=== PATIENT | female | born 1940 | race Caucasian/White ===

== ENCOUNTER 2016-08-24 10:26 | Outpatient (CLI) | payer MEDICARE, BC ==
[2016-08-24 13:02] LABS: #Basophils 0.1 thou/uL (0.0-0.2); #Eosinphils 0.2 thou/uL (0.0-0.7); #Lymphocytes 2.3 thou/uL (1.20-3.40); #Monocytes 0.5 thou/uL (0.11-0.59); #Neutrophils 4.9 thou/uL (1.40-6.50); %Basophils 0.9 % (0.0-1.0); %Eosinophils 1.9 % (0.0-10.0); %Lymphocytes 29.5 % (21.0-51.0); Hematocrit 41.8 % (36.0-47.0); Mean Platelet Volume 5.5 fL (7.4-10.4); Red Blood Cell (RBC) Count 4.56 mill/uL (4.20-5.40); White Blood Cell (WBC) Count 7.9 thou/uL (4.8-10.8)
[2016-08-24 13:12] LABS: ALT (SGPT) 9 U/L (0-55); AST (SGOT) 12 U/L (5-34); Alkaline Phosphatase 93 U/L (40-150); Amylase 55 U/L (20-160); Anion Gap 15 mmol/L (10-20); BUN (Urea Nitrogen) 14 mg/dL (9.8-20.1); Bilirubin, Total 0.2 mg/dL (0.2-1.2); Calc. Creatinine Clearance 0 mL/min (70-130); Calcium 9.5 mg/dL (7.8-10.44); Carbon Dioxide 28 mmol/L (23-31); Chloride 104 mmol/L (98-107); Estimated GFR-MDRD 75; Globulin 2.6 g/dL (2.4-3.5); Lipase 34 U/L (8-78); Protein, Total 6.6 g/dL (5.8-8.1)
[2016-08-24 14:14] LABS: Free T3 2.91 pg/mL (1.71-3.71)
== END 2016-08-24 10:27 | disposition home or self-care (01) ==
LOC: NAVSJIPCSP 10:26
PROVIDERS: ATTEND Internal Medicine
DX: T50.905S Adverse effect of unspecified drugs, medicaments and biological substances, sequela (principal)
CPT/HCPCS: 36415; 80053; 82150; 82175; 82306; 82607; 82728; 83655; 83690; 83735; 83825; 84439; 84443; 84481; 84630; 85025

== ENCOUNTER 2017-03-30 09:48 | Outpatient (CLI) | payer MEDICARE, BC ==
--- NOTE | 2017-03-30 16:05 | ULT ---
ABDOMINAL SONOGRAM: 03/30/17 HISTORY: Abdominal pain. FINDINGS: Gallbladder has a normal appearance without evidence of stones. Common duct is 0.3 cm in diameter. S eptated cyst within the caudate lobe of the liver is 2.5 cm greatest diameter. No free fluid is appa rent. The spleen, kidneys, and visualized portions of the abdominal aorta, IVC, and pancreas are within no rmal limits. Common duct is 0.3 cm diameter. Centered within the right lower quadrant is a heterogeneous mass containing some internal flow and c alcifications. It measures up to 12.3 cm in length x 0.7 cm in depth. IMPRESSION: Large right lower quadrant mass, favored to be gynecologic in origin. Pelvic sonogram is pending. Please consider CT of the abdomen and pelvis for better characterization of the lesion. POS: [facility]
== END 2017-03-30 09:49 | disposition home or self-care (01) ==
LOC: NAV ULT 09:48
PROVIDERS: ATTEND Internal Medicine
DX: R19.03 Right lower quadrant abdominal swelling, mass and lump (principal)
CPT/HCPCS: 76700

== ENCOUNTER 2017-04-18 10:57 | Outpatient (CLI) | payer MEDICARE, BC ==
--- NOTE | 2017-04-18 16:20 | ULT ---
PELVIC ULTRASOUND: Date: 04-18-17 History: Right lower quadrant mass seen on prior abdominal ultrasound on 03-30-17. FINDINGS: Multiple transabdominal and endovaginal sonographic images of the pelvis are obtained. The uterus is heterogeneous and lobulated in appearance. In addition, there is a large mass in the m idline and right lower quadrant of the abdomen which measures 14 cm x 12 cm x 9 cm in maximal dimens ions. The uterus and right ovary abutt this mass and the exact origin of this mass is unable to be d etermined based on this examination. Uterus is not well demarcated in relation to this mass. Though this mass does abutt the right ovary, there are peripheral follicles seen in the right ovary and a n ormal appearing portion of the right ovary measures 3.5 cm x 1.8 cm x 2.3 cm. Left ovary demonstrate s normal sonographic appearance with peripheral follicles seen that measures 2.9 cm x 1.3 cm x 1.8 c m. Doppler evaluation and spectral analysis of each ovary demonstrates arterial flow in the bilateral o varies. Endometrial stripe is thickened for post-menopausal female patient, measuring between 0.7 and 0.8 cm . No free fluid is seen in the cul-de-sac. IMPRESSION: 1. Large heterogeneous mass in the midline and in the right lower quadrant of the abdomen. The exact origin of this mass is unable to be delineated on this examination. This mass abuts both the right ovary as well as the uterus. Margins of the uterus do appear lobulated, and uterus has a heterogeneo us appearance. Further evaluation with CT scan versus MRI of the pelvis is recommended for further e valuation. 2. Thickened endometrial stripe, and abnormal in thickness for post-menopausal female patient. Altho ugh findings could be related to hormone replacement therapy, other etiologies for increased thickne ss of endometrial stripe including endometrial carcinoma are a possibility. POS: [facility]
== END 2017-04-18 10:58 | disposition home or self-care (01) ==
LOC: NAV ULT 10:57
PROVIDERS: ATTEND Internal Medicine
DX: R19.03 Right lower quadrant abdominal swelling, mass and lump (principal); Z78.0 Asymptomatic menopausal state
CPT/HCPCS: 76856

== ENCOUNTER 2017-05-18 16:02 | Inpatient (IN) | payer MEDICARE, BC ==
[2017-05-18 18:05] VITALS: BMI 16.3
[2017-05-18] MEDS: Ondansetron HCl/PF 4 MG/2 ML Vial IVP PRN (18:39)
[2017-05-18] MEDS: Famotidine 20 MG TAB PO SCH ×2 (20:19→20:21)
[2017-05-18 20:32] LABS: #Basophils 0.2 thou/uL (0.0-0.2); #Lymphocytes 1.3 thou/uL (1.20-3.40); #Monocytes 0.9 thou/uL (0.11-0.59); #Neutrophils 14.7 thou/uL (1.40-6.50); %Basophils 0.9 % (0.0-1.0); %Eosinophils 0.2 % (0.0-10.0); %Lymphocytes 7.8 % (21.0-51.0); %Monocytes 5.5 % (0.0-10.0); %Neutrophils 85.6 % (42.0-75.0); Mean Corpuscular HGB CONC 31.2 g/dL (32.0-36.0); Mean Corpuscular Hemoglobin 27.9 pg (27.0-31.0); Mean Corpuscular Volume 89.5 fl (81.0-99.0); Mean Platelet Volume 6.9 fL (7.4-10.4); Platelet Count 299 thou/uL (130-400); RBC Distribution Width 17.7 % (11.5-14.5); Red Blood Cell (RBC) Count 2.86 mill/uL (4.20-5.40); White Blood Cell (WBC) Count 17.2 thou/uL (4.8-10.8)
[2017-05-18 20:46] LABS: ALT (SGPT) 9 U/L (8-55); AST (SGOT) 21 U/L (5-34); Albumin 2.7 g/dL (3.4-4.8); Alkaline Phosphatase 364 U/L (40-150); Anion Gap 15 mmol/L (10-20); BUN (Urea Nitrogen) 21 mg/dL (9.8-20.1); Bilirubin, Total 0.8 mg/dL (0.2-1.2); Calc. Creatinine Clearance 48 mL/min (70-130); Calcium 8.9 mg/dL (7.8-10.44); Carbon Dioxide 28 mmol/L (23-31); Chloride 98 mmol/L (98-107); Estimated GFR-MDRD Greater than 90; Globulin 3.5 g/dL (2.4-3.5); Glucose 132 mg/dL (83-110); Protein, Total 6.2 g/dL (6.0-8.3); Sodium 137 mmol/L (136-145)
[2017-05-18] MEDS: SODIUM ACETATE IV SCH ×9 (21:57)
[2017-05-18] MEDS: [UNRECOGNIZED DRUG - OTHER] IV SCH ×9 (21:57)
[2017-05-18] MEDS: SODIUM CHLORIDE IV SCH ×9 (21:57)
[2017-05-18] MEDS: POTASSIUM CHLORIDE IV SCH ×9 (21:57)
[2017-05-18] MEDS ORDERED: AMINO ACIDS IV SCH (22:00)
--- NOTE | 2017-05-19 00:37 | HP ---
DATE OF ADMISSION: 05/18/2017 HISTORY OF PRESENT ILLNESS: The patient is a very pleasant 76-year-old white female with a long his tory of hypertension, hyperlipidemia, has had a history of worsening weight loss and abdominal pain over the last several months and worked up as an outpatient, which showed an abdominal mass on CT sc an was referred to Dr. Reyna as an outpatient with the pain got worse, was admitted to the [facility] and found to have a very large abdominal mass with biopsy which showed undifferentiated carcinoma. She has been started on TPN because of her anorexia and weight loss as she has pain when she eats despite having a good appetite. PAST MEDICAL HISTORY: Remarkable only for the hypertension, hyperlipidemia. PAST SURGICAL HISTORY: Positive for tubal ligation and appendectomy. SOCIAL HISTORY: She is nonsmoker, nondrinker. MEDICATIONS: Include previous history of famotidine 20 twice daily. She is on no further blood pre ssure medicines. REVIEW OF SYSTEMS: Constitutional: She has no fever or chills. No cough, sputum production. Pulm onary: Denies chest pain, shortness of breath. Cardiovascular: Denies palpitations, orthopnea, pa roxysmal nocturnal dyspnea. Gastrointestinal: Has abdominal pain, no nausea and vomiting, increase d pain with eating, has decreased bowel movement. Genitourinary: No dysuria or hematuria. Musculo skeletal: Minimal back pain and chronic neck pain from previous laminectomy from surgery. PHYSICAL EXAMINATION: GENERAL: Patient is cachectic white female, alert, oriented, lucid, in no distress at rest. VITAL SIGNS: Showed to have a blood pressure 138/76, temperature 97, pulse 70, respirations 18, O2 sats 95%. HEENT: Pupils are equal, round, and reactive to light and accommodation. Sclerae are anicteric, Co njunctivae pale. Oral mucous membranes are dehydrated. NECK: Supple. There are no nodes or masses. LUNGS: Clear. CARDIAC: Showed regular rhythm. ABDOMEN: Scaphoid but with a large abdominal tender masses. SKIN/EXTREMITIES: Display no edema, clubbing, cyanosis, or decreased skin turgor. NEUROLOGIC: Shows no focal findings. LABORATORY AND X-RAY FINDINGS: Most recent laboratory shows white count of 17,000, hematocrit 25, h emoglobin 8. Sodium 137, potassium 4.0, chloride 98, bicarbonate 28, BUN 21, creatinine 0.55. Accu -Cheks 121-129 on TPN, alkaline phosphatase 364, albumin 2.7. Urinalysis within normal limits. ASSESSMENT AND PLAN: Unfortunate 76-year-old white female with a history of undifferentiated carcin martha of the abdomen, who admitted for total parenteral nutrition and strengthening, awaiting transfer to [facility] for further treatment. She will be monitored closely and continued on pain medica tion as needed. Total parenteral nutrition as needed with routine laboratories. Prognosis is poor, but she is a FULL CODE at this time.
[2017-05-19] MEDS ORDERED: Sodium Chloride 0.9% 20 ML ONE (01:31)
[2017-05-19] MEDS: HYDROcodone/Acetaminophen 5/325 mg Tablet PO PRN ×5 (01:33→22:31)
[2017-05-19] MEDS: Ondansetron HCl/PF 4 MG/2 ML Vial IVP PRN ×3 (01:34→22:24)
[2017-05-19 05:35] LABS: PTT 35.4 SEC (22.9-36.1); Prothrombin Time 13.7 SEC (12.0-14.7)
[2017-05-19 05:46] LABS: ALT (SGPT) 8 U/L (8-55); AST (SGOT) 22 U/L (5-34); Albumin 2.6 g/dL (3.4-4.8); Alkaline Phosphatase 325 U/L (40-150); Anion Gap 11 mmol/L (10-20); BUN (Urea Nitrogen) 19 mg/dL (9.8-20.1); Bilirubin, Total 0.7 mg/dL (0.2-1.2); Calc. Creatinine Clearance 55 mL/min (70-130); Calcium 8.6 mg/dL (7.8-10.44); Carbon Dioxide 28 mmol/L (23-31); Cardiac Risk 4.1 (Less than 4.5); Chloride 100 mmol/L (98-107); Cholesterol 111 mg/dl (< 200 Desired); Estimated GFR-MDRD Greater than 90; Globulin 3.3 g/dL (2.4-3.5); Glucose 113 mg/dL (83-110); HDL Cholesterol 27 mg/dL (>60 Neg Risk); LDL Cholesterol, Calculated 75 mg/dL; Phosphorus 3.7 mg/dL (2.3-4.7); Potassium 4.2 mmol/L (3.5-5.1); Protein, Total 5.9 g/dL (6.0-8.3); Sodium 135 mmol/L (136-145); Triglycerides 44 mg/dL (Less than 150)
[2017-05-19] MEDS: Ondansetron ODT 4 MG TAB PO PRN (08:20)
[2017-05-19] MEDS: Ferrous Sulfate 325 MG TAB PO SCH (08:22)
[2017-05-19] MEDS: Famotidine 20 MG TAB PO SCH ×3 (08:22→22:18)
[2017-05-19] MEDS: Enoxaparin Sodium 40 MG/0.4 ML SYRINGE SC SCH (08:27)
[2017-05-19] MEDS: Sodium Chloride 0.9% 20 ML ONE ×2 (13:37→22:25)
[2017-05-19] MEDS: POTASSIUM CHLORIDE IV SCH ×9 (21:57)
[2017-05-19] MEDS: [UNRECOGNIZED DRUG - OTHER] IV SCH ×9 (21:57)
[2017-05-19] MEDS: SODIUM CHLORIDE IV SCH ×9 (21:57)
[2017-05-19] MEDS: SODIUM ACETATE IV SCH ×9 (21:57)
[2017-05-19] MEDS ORDERED: Sodium Chloride 0.9% 10 ML ONE (22:23)
[2017-05-20] MEDS ORDERED: Sodium Chloride 0.9% 10 ML ONE ×3 (06:58→14:04)
[2017-05-20] MEDS: Ferrous Sulfate 325 MG TAB PO SCH (08:16)
[2017-05-20] MEDS: Enoxaparin Sodium 40 MG/0.4 ML SYRINGE SC SCH (08:16)
[2017-05-20] MEDS: Famotidine 20 MG TAB PO SCH ×2 (08:16→20:20)
[2017-05-20] MEDS: Ondansetron HCl/PF 4 MG/2 ML Vial IVP PRN ×2 (08:17→14:07)
--- NOTE | 2017-05-20 17:59 | PRG ---
DATE OF SERVICE: 05/20/2017 HISTORY OF PRESENT ILLNESS: Ms. Casas is a very pleasant 76-year-old white female, who was found to have an abdominal mass on CT scan. She was seen by Dr. Osorio, who did a biopsy and found to have un differentiated adenocarcinoma in a very large abdominal mass. She had significant pain on eating an d was started on TPN by Dr. Osorio and Dr. Reyna. She is transferred down here for continued TPN a nd PT and OT. She has comorbidities of hypertension, hyperlipidemia, weight loss, and abdominal pain. PHYSICAL EXAMINATION: VITAL SIGNS: Reveal blood pressure is this morning 143/77, pulse 107-119, respirations 16-20, O2 sa t 94%-97%, t-max 98.9. GENERAL: This is a very pleasant, thin white female, in no apparent distress at this time. HEENT: Reveals normocephalic, nontraumatic cranium. Pupils are equally round and reactive. Sclera e are anicteric. Nose and throat are somewhat dry. NECK: Supple, without masses, nodes, or bruits. LUNGS: Chest is clear to auscultation. No rales, rhonchi, wheezes. Cough is heard. CARDIOVASCULAR: Reveals a regular rate and rhythm without murmurs, gallops, or rubs. ABDOMEN: Somewhat distended with tender abdominal masses. She does have bowel sounds in all 4 quad rants. : Deferred. EXTREMITIES: Reveal no clubbing, cyanosis, or edema. IMPRESSION: 1. Undifferentiated adenocarcinoma of the abdomen. 2. Cachexia. 3. Hypertension. 4. Hyperlipidemia. PLAN: 1. Continue TPN. 2. Pain management. 3. Continue supportive care.
[2017-05-20] MEDS ORDERED: Sodium Chloride 0.9% 20 ML ONE (20:01)
[2017-05-20] MEDS: POTASSIUM CHLORIDE IV SCH ×9 (21:13)
[2017-05-20] MEDS: [UNRECOGNIZED DRUG - OTHER] IV SCH ×9 (21:13)
[2017-05-20] MEDS: SODIUM CHLORIDE IV SCH ×9 (21:13)
[2017-05-20] MEDS: SODIUM ACETATE IV SCH ×9 (21:13)
[2017-05-21] MEDS ORDERED: Sodium Chloride 0.9% 20 ML ONE (03:46)
[2017-05-21 05:39] LABS: ALT (SGPT) 7 U/L (8-55); AST (SGOT) 20 U/L (5-34); Albumin 2.5 g/dL (3.4-4.8); Alkaline Phosphatase 251 U/L (40-150); Anion Gap 12 mmol/L (10-20); BUN (Urea Nitrogen) 24 mg/dL (9.8-20.1); Bilirubin, Total 0.4 mg/dL (0.2-1.2); Calc. Creatinine Clearance 60 mL/min (70-130); Calcium 8.4 mg/dL (7.8-10.44); Carbon Dioxide 25 mmol/L (23-31); Chloride 103 mmol/L (98-107); Estimated GFR-MDRD Greater than 90; Globulin 3.2 g/dL (2.4-3.5); Glucose 123 mg/dL (83-110); Magnesium 1.7 mg/dL (1.6-2.6); Phosphorus 3.3 mg/dL (2.3-4.7); Potassium 4.2 mmol/L (3.5-5.1); Protein, Total 5.7 g/dL (6.0-8.3); Sodium 136 mmol/L (136-145)
[2017-05-21] MEDS: Ferrous Sulfate 325 MG TAB PO SCH (08:46)
[2017-05-21] MEDS: Enoxaparin Sodium 40 MG/0.4 ML SYRINGE SC SCH (08:47)
[2017-05-21] MEDS: Famotidine/PF 20 mg/2ml Vial SLOW IVP SCH ×2 (08:54→20:21)
--- NOTE | 2017-05-21 12:17 | PRG ---
DATE OF SERVICE: 05/21/2017 DATE OF ADMISSION: 05/18/2017 HISTORY OF PRESENT ILLNESS: Ms. Casas is a very pleasant 76-year-old white female found to have an u ndifferentiated adenocarcinoma of the abdomen. She was started on TPN and transferred here until Hailey Nieto can see the patient. She continues to have comorbidities of hypertension, hyperlipidemia, abdominal pain and weight loss. OBJECTIVE: VITAL SIGNS: Today reveal blood pressure 148/74, pulse 112-119, respirations 20-22, O2 sat 96%, tem perature max 99.1. Weight is 78 pounds 4 ounces. GENERAL: Reveals a well-developed, well-nourished, cachectic-looking white female in no apparent di stress at this time. HEENT: Reveals normocephalic, nontraumatic cranium. Pupils are equally round and reactive. Extrao cular movements intact. Nose and throat are still clear but dry. NECK: Supple without masses, nodes or bruits. CHEST: Clear to auscultation. No rales, rhonchi, wheezes or cough is heard. CARDIOVASCULAR: Reveals a regular rate and rhythm, slightly tachy on my account of 104. ABDOMEN: Distended and tender with abdominal masses. Normal bowel sounds are noted. GENITOURINARY: Deferred. EXTREMITIES: Reveal no clubbing, cyanosis or edema. IMPRESSION: 1. Undifferentiated adenocarcinoma of the abdomen. 2. Cachexia. 3. Hypertension. 4. Hyperlipidemia. 5. Pain management. 6. Generalized weakness. PLAN: 1. Continue TPN. 2. Continue pain management. 3. Continue supportive care. 4. Awaiting discharge [facility].
[2017-05-21] MEDS: [UNRECOGNIZED DRUG - OTHER] IV SCH ×9 (21:02)
[2017-05-21] MEDS: POTASSIUM CHLORIDE IV SCH ×9 (21:02)
[2017-05-21] MEDS: SODIUM ACETATE IV SCH ×9 (21:02)
[2017-05-21] MEDS: SODIUM CHLORIDE IV SCH ×9 (21:02)
[2017-05-22 05:37] LABS: ALT (SGPT) 8 U/L (8-55); AST (SGOT) 24 U/L (5-34); Albumin 2.6 g/dL (3.4-4.8); Alkaline Phosphatase 276 U/L (40-150); Anion Gap 13 mmol/L (10-20); BUN (Urea Nitrogen) 19 mg/dL (9.8-20.1); Bilirubin, Total 0.4 mg/dL (0.2-1.2); Calc. Creatinine Clearance 60 mL/min (70-130); Calcium 8.4 mg/dL (7.8-10.44); Carbon Dioxide 26 mmol/L (23-31); Chloride 100 mmol/L (98-107); Estimated GFR-MDRD Greater than 90; Globulin 3.3 g/dL (2.4-3.5); Glucose 93 mg/dL (83-110); Magnesium 1.6 mg/dL (1.6-2.6); Phosphorus 3.2 mg/dL (2.3-4.7); Potassium 3.9 mmol/L (3.5-5.1); Protein, Total 5.9 g/dL (6.0-8.3); Sodium 135 mmol/L (136-145)
--- NOTE | 2017-05-22 08:00 | PRG ---
DATE OF SERVICE: 05/22/2017 DATE OF ADMISSION: 05/18/2017 HISTORY OF PRESENT ILLNESS: Ms. Casas is a very pleasant 76-year-old white female found to have sign ificant weight loss and abdominal pain. Biopsy revealed undifferentiated adenocarcinoma of the abdo men. She was started on TPN by Dr. Reyna and Dr. Osorio transferred to [facility] [place] for continued nutritional support. She is followed by Dr. Givens mainly for her comorbidities of hypertension, hyperlipidemia, abdominal pain, weight loss, and nutritional supplementation. OBJECTIVE: VITAL SIGNS: Today reveal blood pressure this morning 141/77, pulse 100-114 which is improving, res pirations 20, O2 sat 94%-96% on room air, T-max 99.4. GENERAL: This is a well-developed, very pleasant, very thin, cachectic-looking white female in no a pparent distress at this time. HEENT: Reveals normocephalic, nontraumatic cranium. Pupils are equally round and reactive. Extrao cular movements intact. Nose and throat are still looking very dry. NECK: Supple, without masses, nodes or bruits. LUNGS: Chest is clear to auscultation. No rales, rhonchi or wheezes are heard. No cough is noted. HEART: Reveals a regular rate and rhythm, tachy at exactly 100 today. ABDOMEN: engine lathe tender with abdominal masses. Still slightly distended, but soft. Normal bowel jorden nds noted in all 4 quadrants. : Exam is deferred. EXTREMITIES: Reveal no clubbing, cyanosis or edema. LABORATORY DATA: This morning reveal sodium 135, potassium 3.9, chloride 100, carbon dioxide 26 wit h BUN of 19, creatinine 0.44 and GFR greater than 90. The patient's sugar this morning was 93. Her point of care sugar reveals fasting this morning 116, before bedtime last night 123, before supper 115, before lunch 117, fasting yesterday morning 123. Patient's serum alkaline phosphatase is 276 w ith serum protein slightly up at 5.9, albumin slightly up at 2.6. IMPRESSION: 1. Differentiated adenocarcinoma of the abdomen, unknown staging. 2. Cachexia. 3. Hypertension. 4. Hyperlipidemia. 5. Nutritional malnutrition. 6. Pain management. 7. Generalized weakness. PLAN: 1. Continue TPN. 2. Continue pain management. 3. Continue supportive care. 4. Followup appointment with Dr. Abernathy on .
[2017-05-22] MEDS: Ferrous Sulfate 325 MG TAB PO SCH (08:56)
[2017-05-22] MEDS: Famotidine/PF 20 mg/2ml Vial SLOW IVP SCH ×2 (08:56→20:46)
[2017-05-22] MEDS: Enoxaparin Sodium 40 MG/0.4 ML SYRINGE SC SCH (08:57)
[2017-05-22] MEDS: Morphine 2 MG/ML SYRINGE SLOW IVP PRN (19:01)
[2017-05-22] MEDS: SODIUM ACETATE IV SCH ×9 (21:05)
[2017-05-22] MEDS: SODIUM CHLORIDE IV SCH ×9 (21:05)
[2017-05-22] MEDS: POTASSIUM CHLORIDE IV SCH ×9 (21:05)
[2017-05-22] MEDS: [UNRECOGNIZED DRUG - OTHER] IV SCH ×9 (21:05)
[2017-05-23] MEDS: Morphine 2 MG/ML SYRINGE SLOW IVP PRN ×4 (01:14→20:08)
[2017-05-23 05:37] LABS: ALT (SGPT) 7 U/L (8-55); AST (SGOT) 24 U/L (5-34); Albumin 2.5 g/dL (3.4-4.8); Alkaline Phosphatase 318 U/L (40-150); Anion Gap 14 mmol/L (10-20); BUN (Urea Nitrogen) 17 mg/dL (9.8-20.1); Bilirubin, Total 0.4 mg/dL (0.2-1.2); Calc. Creatinine Clearance 61 mL/min (70-130); Calcium 8.3 mg/dL (7.8-10.44); Carbon Dioxide 26 mmol/L (23-31); Chloride 98 mmol/L (98-107); Estimated GFR-MDRD Greater than 90; Globulin 3.3 g/dL (2.4-3.5); Glucose 85 mg/dL (83-110); Magnesium 1.6 mg/dL (1.6-2.6); Phosphorus 3.1 mg/dL (2.3-4.7); Potassium 3.7 mmol/L (3.5-5.1); Protein, Total 5.8 g/dL (6.0-8.3); Sodium 134 mmol/L (136-145)
[2017-05-23] MEDS: Ondansetron ODT 4 MG TAB PO PRN (08:03)
[2017-05-23] MEDS: Ferrous Sulfate 325 MG TAB PO SCH ×2 (08:07→08:17)
[2017-05-23] MEDS: Enoxaparin Sodium 40 MG/0.4 ML SYRINGE SC SCH ×2 (08:08→08:16)
[2017-05-23] MEDS: Famotidine/PF 20 mg/2ml Vial SLOW IVP SCH ×2 (08:08→20:07)
[2017-05-23 10:51] LABS: #Basophils 0.1 thou/uL (0.0-0.2); #Lymphocytes 1.5 thou/uL (1.20-3.40); #Monocytes 1.3 thou/uL (0.11-0.59); #Neutrophils 12.4 thou/uL (1.40-6.50); %Basophils 0.8 % (0.0-1.0); %Eosinophils 0.3 % (0.0-10.0); %Lymphocytes 9.7 % (21.0-51.0); %Monocytes 8.2 % (0.0-10.0); %Neutrophils 81.1 % (42.0-75.0); Hemoglobin 7.5 g/dL (12.0-16.0); Mean Corpuscular HGB CONC 30.8 g/dL (32.0-36.0); Mean Corpuscular Hemoglobin 27.5 pg (27.0-31.0); Mean Corpuscular Volume 89.2 fl (81.0-99.0); Mean Platelet Volume 6.6 fL (7.4-10.4); Platelet Count 316 thou/uL (130-400); RBC Distribution Width 17.9 % (11.5-14.5); Red Blood Cell (RBC) Count 2.72 mill/uL (4.20-5.40); White Blood Cell (WBC) Count 15.3 thou/uL (4.8-10.8)
--- NOTE | 2017-05-23 20:58 | PRG ---
DATE OF SERVICE: 05/23/2017 SUBJECTIVE: The patient feels well, lying in bed, but still having pain with any movement, require morphine for pain control at times. OBJECTIVE: VITAL SIGNS: Shows her blood pressure is stable at 160/81, temperature 98, pulse 99, respirations 2 0, O2 sats 96%. ABDOMEN: Distended with a large periumbilical tumor which is tender to palpation. LUNGS: Shows good breath sounds. CARDIAC: Shows regular rhythm. LABORATORY DATA: Show white count did improve somewhat 15,300, hemoglobin down to 7.5; however, hematocrit 24. Sodiu m 134, potassium 3.6, chloride 98, bicarbonate 26, BUN 17, creatinine 0.43. Liver function cells, a lkaline phosphatase 318, albumin is stable at 2.5. ASSESSMENT: 1. Abdominal tumor of unknown etiology, awaiting pathology results from [facility]. 2. Severe cachexia, malnutrition on TPN, tolerating well. PLAN: Continue PPN, follow up with Dr. Abernathy this week for definitive plan on therapy. Surgical and/or chemotherapy possibly at the [facility].
[2017-05-23] MEDS: POTASSIUM CHLORIDE IV SCH ×9 (20:59)
[2017-05-23] MEDS: [UNRECOGNIZED DRUG - OTHER] IV SCH ×9 (20:59)
[2017-05-23] MEDS: SODIUM CHLORIDE IV SCH ×9 (20:59)
[2017-05-23] MEDS: SODIUM ACETATE IV SCH ×9 (20:59)
[2017-05-24] MEDS: Morphine 2 MG/ML SYRINGE SLOW IVP PRN ×3 (05:10→19:58)
[2017-05-24 05:36] LABS: ALT (SGPT) 8 U/L (8-55); AST (SGOT) 29 U/L (5-34); Albumin 2.7 g/dL (3.4-4.8); Alkaline Phosphatase 339 U/L (40-150); Anion Gap 15 mmol/L (10-20); BUN (Urea Nitrogen) 17 mg/dL (9.8-20.1); Bilirubin, Total 0.5 mg/dL (0.2-1.2); Calc. Creatinine Clearance 57 mL/min (70-130); Calcium 8.6 mg/dL (7.8-10.44); Carbon Dioxide 25 mmol/L (23-31); Chloride 97 mmol/L (98-107); Estimated GFR-MDRD Greater than 90; Globulin 3.6 g/dL (2.4-3.5); Glucose 87 mg/dL (83-110); Magnesium 1.7 mg/dL (1.6-2.6); Phosphorus 3.1 mg/dL (2.3-4.7); Potassium 3.5 mmol/L (3.5-5.1); Protein, Total 6.3 g/dL (6.0-8.3); Sodium 133 mmol/L (136-145)
--- NOTE | 2017-05-24 07:37 | PRG ---
DATE OF SERVICE: 05/24/2017 SUBJECTIVE: The patient is an unfortunate 76-year-old white female with a history of a large undiff erentiated carcinoma in her abdomen causing partial obstruction, inability to eat, cachexia and wast ing. She is awaiting evaluation of slides by Dion Nieto and possible transfer for surgical and c hemotherapy. She is here on TPN and is tolerating TPN fairly well, but is still very weak, having r ecurrent nausea and abdominal pain. OBJECTIVE: VITAL SIGNS: Shows her blood pressure is 147/61, temperature 99.9, pulse 106, respirations 20, O2 s ats 96%. LUNGS: Clear. CARDIAC: Regular rhythm. ABDOMEN: Shows a large abdominal mass with tenderness to palpation. LABORATORY: Most recent laboratory show white count down to 15,300, but hemoglobin down also the 7. 5, hematocrit 24.3. Sodium 133, potassium 3.5, chloride 97, bicarbonate 25, BUN 17, creatinine 0.46 , albumin up slightly to 2.7, globulin 3.6. ASSESSMENT: Undifferentiated carcinoma of the abdomen with partial obstruction and cachexia and wor sening anemia. Awaiting results of pathology to determine course and will discuss with Dr. Devon vogel apparently has contacted Dion Nieto personally. We will also give 1 unit of packed cells and m onitor her response to see if it increases her strength.
[2017-05-24] MEDS: Enoxaparin Sodium 40 MG/0.4 ML SYRINGE SC SCH (08:50)
[2017-05-24] MEDS: Ferrous Sulfate 325 MG TAB PO SCH (08:50)
[2017-05-24] MEDS: Famotidine/PF 20 mg/2ml Vial SLOW IVP SCH ×2 (13:17→21:03)
[2017-05-24] MEDS: SODIUM CHLORIDE IV SCH ×9 (21:03)
[2017-05-24] MEDS: POTASSIUM CHLORIDE IV SCH ×9 (21:03)
[2017-05-24] MEDS: [UNRECOGNIZED DRUG - OTHER] IV SCH ×9 (21:03)
[2017-05-24] MEDS: SODIUM ACETATE IV SCH ×9 (21:03)
[2017-05-25] MEDS: Morphine 2 MG/ML SYRINGE SLOW IVP PRN ×4 (02:33→21:09)
[2017-05-25] MEDS: Ondansetron HCl/PF 4 MG/2 ML Vial IVP PRN ×3 (02:34→21:08)
[2017-05-25 05:54] LABS: ALT (SGPT) 8 U/L (8-55); AST (SGOT) 28 U/L (5-34); Albumin 2.7 g/dL (3.4-4.8); Alkaline Phosphatase 319 U/L (40-150); Anion Gap 13 mmol/L (10-20); BUN (Urea Nitrogen) 21 mg/dL (9.8-20.1); Bilirubin, Total 0.5 mg/dL (0.2-1.2); Calc. Creatinine Clearance 57 mL/min (70-130); Calcium 8.8 mg/dL (7.8-10.44); Carbon Dioxide 26 mmol/L (23-31); Chloride 100 mmol/L (98-107); Estimated GFR-MDRD Greater than 90; Globulin 3.5 g/dL (2.4-3.5); Glucose 84 mg/dL (83-110); Magnesium 1.9 mg/dL (1.6-2.6); Phosphorus 3.3 mg/dL (2.3-4.7); Protein, Total 6.2 g/dL (6.0-8.3); Sodium 135 mmol/L (136-145)
[2017-05-25] MEDS: Ferrous Sulfate 325 MG TAB PO SCH (08:23)
[2017-05-25] MEDS: Enoxaparin Sodium 40 MG/0.4 ML SYRINGE SC SCH (08:23)
[2017-05-25] MEDS: Famotidine/PF 20 mg/2ml Vial SLOW IVP SCH ×2 (08:24→21:08)
[2017-05-25] MEDS: [UNRECOGNIZED DRUG - OTHER] IV SCH ×9 (21:01)
[2017-05-25] MEDS: SODIUM CHLORIDE IV SCH ×9 (21:01)
[2017-05-25] MEDS: SODIUM ACETATE IV SCH ×9 (21:01)
[2017-05-25] MEDS: POTASSIUM CHLORIDE IV SCH ×9 (21:01)
[2017-05-26] MEDS: Ondansetron HCl/PF 4 MG/2 ML Vial IVP PRN ×3 (02:56→22:15)
[2017-05-26] MEDS: Morphine 2 MG/ML SYRINGE SLOW IVP PRN ×3 (02:57→15:04)
[2017-05-26 05:55] LABS: ALT (SGPT) 9 U/L (8-55); AST (SGOT) 29 U/L (5-34); Albumin 2.7 g/dL (3.4-4.8); Alkaline Phosphatase 366 U/L (40-150); Anion Gap 14 mmol/L (10-20); BUN (Urea Nitrogen) 22 mg/dL (9.8-20.1); Bilirubin, Total 0.5 mg/dL (0.2-1.2); Calc. Creatinine Clearance 57 mL/min (70-130); Calcium 8.8 mg/dL (7.8-10.44); Carbon Dioxide 25 mmol/L (23-31); Chloride 101 mmol/L (98-107); Estimated GFR-MDRD Greater than 90; Globulin 3.7 g/dL (2.4-3.5); Glucose 125 mg/dL (83-110); Magnesium 1.8 mg/dL (1.6-2.6); Phosphorus 3.3 mg/dL (2.3-4.7); Potassium 4.2 mmol/L (3.5-5.1); Protein, Total 6.4 g/dL (6.0-8.3); Sodium 136 mmol/L (136-145)
[2017-05-26 07:18] LABS: #Basophils 0.2 thou/uL (0.0-0.2); #Lymphocytes 1.4 thou/uL (1.20-3.40); #Monocytes 1.1 thou/uL (0.11-0.59); %Basophils 1.1 % (0.0-1.0); %Eosinophils 0.1 % (0.0-10.0); %Monocytes 6.9 % (0.0-10.0); %Neutrophils 82.9 % (42.0-75.0); Hemoglobin 7.5 g/dL (12.0-16.0); Mean Corpuscular HGB CONC 31.2 g/dL (32.0-36.0); Mean Corpuscular Hemoglobin 27.7 pg (27.0-31.0); Mean Corpuscular Volume 88.9 fl (81.0-99.0); Mean Platelet Volume 6.7 fL (7.4-10.4); Platelet Count 363 thou/uL (130-400); RBC Distribution Width 17.6 % (11.5-14.5); Red Blood Cell (RBC) Count 2.71 mill/uL (4.20-5.40); White Blood Cell (WBC) Count 15.7 thou/uL (4.8-10.8)
--- NOTE | 2017-05-26 08:21 | PRG ---
DATE OF SERVICE: 05/26/2017 SUBJECTIVE: The patient is having persistent intermittent abdominal pain from her abdominal mass. The patient has history of large undifferentiated carcinoma and is awaiting results of pathology rep ort from MD Nieto to determine therapy. She is on TPN at this time and appears to be slightly im proving, but is unable to tolerate any oral intake other than minimal amounts of liquids because of abdominal pain and partial obstruction. OBJECTIVE: VITAL SIGNS: Shows her blood pressure still good at 174/83, temperature is 98, pulse is 109, respir ations 20, O2 saturation is 95%. LUNGS: Clear. CARDIAC: Examination shows regular rhythm. ABDOMEN: Shows large abdominal mass within the scaphoid. Abdomen is nontender to palpation. Activ e bowel sounds. SKIN AND EXTREMITIES: Showed no edema or clubbing. LABORATORY DATA: Shows white count of 15,700, hematocrit 24, and hemoglobin 7.5. Sodium 136, potas sium 4.2, chloride 101, bicarbonate 25, BUN 24, creatinine 0.46, albumin up to 2.77. ASSESSMENT: 1. Undifferentiated carcinoma of the abdomen. Awaiting results of pathology slides from MD Nancy Thornton have confirmed that MD Nieto has slides and we will have results hopefully in the next 1-2 days to determine therapy. 2. Severe malnutrition, cachexia secondary to poor oral intake, abdominal mass and continuing on to titus parenteral nutrition with some slight improvement. 3. Recurrent anemia secondary to the mass with the patient refusing a transfusion at this time.
[2017-05-26] MEDS: Ferrous Sulfate 325 MG TAB PO SCH (08:35)
[2017-05-26] MEDS: Enoxaparin Sodium 40 MG/0.4 ML SYRINGE SC SCH (08:36)
[2017-05-26] MEDS: Famotidine/PF 20 mg/2ml Vial SLOW IVP SCH ×2 (09:00→20:59)
[2017-05-26] MEDS: SODIUM ACETATE IV SCH ×9 (20:59)
[2017-05-26] MEDS: [UNRECOGNIZED DRUG - OTHER] IV SCH ×9 (20:59)
[2017-05-26] MEDS: POTASSIUM CHLORIDE IV SCH ×9 (20:59)
[2017-05-26] MEDS: SODIUM CHLORIDE IV SCH ×9 (20:59)
[2017-05-27] MEDS: Ondansetron HCl/PF 4 MG/2 ML Vial IVP PRN ×4 (06:49→23:36)
[2017-05-27] MEDS: Enoxaparin Sodium 40 MG/0.4 ML SYRINGE SC SCH (08:15)
[2017-05-27] MEDS: Ferrous Sulfate 325 MG TAB PO SCH (08:15)
[2017-05-27] MEDS: Famotidine/PF 20 mg/2ml Vial SLOW IVP SCH ×2 (08:17→21:09)
--- NOTE | 2017-05-27 09:06 | PRG ---
DATE OF SERVICE: 05/27/2017 SUBJECTIVE: The patient feels same and is becoming somewhat agitated and frustrated about the lack of information and then wishes to make a decision today about possible hospice that she feel that sh live is not getting any better with TPN. OBJECTIVE: VITAL SIGNS: Shows her temperature is 96, pulse 106, respirations 18, O2 sats 96%, and blood pressu re 143/73. GENERAL APPEARANCE: She has been unable to eat and sip more than a few drops without having abdomin al pain. ABDOMEN: Shows a large tender abdominal mass with increased bowel sounds. LUNGS: Clear. LABORATORY DATA: Her most recent laboratory showed her white count was 15,000 yesterday with hemogl obin 7.5. Accu-Cheks 113-133, BUN is 22, creatinine 0.46, albumin 2.7, which is stable. ASSESSMENT: Large undifferentiated carcinoma of the abdomen. Awaiting results of biopsy from MD Desire peoples for the last week. The patient is wishing to make a decision about hospice for definitive ca re today and we will attempt to obtain results from MD Nieto.
[2017-05-27] MEDS ORDERED: MORPHINE 10 MG/ML SYRINGE IV PRN (10:28)
[2017-05-27] MEDS ORDERED: Ondansetron ODT 4 MG TAB PO PRN (17:19)
[2017-05-27] MEDS: MORPHINE 10 MG/ML SYRINGE IV PRN ×2 (17:47→23:35)
[2017-05-27] MEDS ORDERED: Sodium Chloride 0.9% 10 ML ONE (17:48)
[2017-05-27] MEDS: SODIUM ACETATE IV SCH ×9 (21:08)
[2017-05-27] MEDS: SODIUM CHLORIDE IV SCH ×9 (21:08)
[2017-05-27] MEDS: POTASSIUM CHLORIDE IV SCH ×9 (21:08)
[2017-05-27] MEDS: [UNRECOGNIZED DRUG - OTHER] IV SCH ×9 (21:08)
[2017-05-28] MEDS: MORPHINE 10 MG/ML SYRINGE IV PRN ×5 (03:41→22:07)
[2017-05-28] MEDS: Ondansetron HCl/PF 4 MG/2 ML Vial IVP PRN ×4 (09:04→22:07)
[2017-05-28] MEDS: Enoxaparin Sodium 40 MG/0.4 ML SYRINGE SC SCH (09:05)
[2017-05-28] MEDS: Famotidine/PF 20 mg/2ml Vial SLOW IVP SCH ×2 (09:05→21:16)
[2017-05-28] MEDS: Ferrous Sulfate 325 MG TAB PO SCH (09:06)
[2017-05-28] MEDS ORDERED: Calcium Carbonate 500 MG ChewTAB PO PRN ×2 (12:59→13:00)
[2017-05-28] MEDS: [UNRECOGNIZED DRUG - OTHER] IV SCH ×9 (21:15)
[2017-05-28] MEDS: SODIUM CHLORIDE IV SCH ×9 (21:15)
[2017-05-28] MEDS: SODIUM ACETATE IV SCH ×9 (21:15)
[2017-05-28] MEDS: POTASSIUM CHLORIDE IV SCH ×9 (21:15)
[2017-05-29] MEDS: Ondansetron HCl/PF 4 MG/2 ML Vial IVP PRN ×5 (02:08→18:04)
[2017-05-29] MEDS: MORPHINE 10 MG/ML SYRINGE IV PRN ×5 (02:08→18:04)
[2017-05-29] MEDS: Ferrous Sulfate 325 MG TAB PO SCH (08:40)
[2017-05-29] MEDS: Enoxaparin Sodium 40 MG/0.4 ML SYRINGE SC SCH (08:41)
[2017-05-29] MEDS: Famotidine/PF 20 mg/2ml Vial SLOW IVP SCH ×2 (08:42→21:30)
--- NOTE | 2017-05-29 17:18 | PRG ---
DATE OF SERVICE: 05/29/2017 SUBJECTIVE: The patient feels poorly and is contemplating hospice, has become frustrated by lack of a decision on her further care and lack of diagnosis. OBJECTIVE: Blood pressure is 128/72, pulse 119, O2 sat is 119%, temperature is 96. Lungs are clear . Cardiac examination shows regular rhythm. Abdomen is soft with a large tender abdominal mass and hyper-pitched bowel sounds. ASSESSMENT: 1. Large abdominal mass of unknown type, carcinoma. 2. Significant deconditioning and worsening malnutrition. PLAN: Discuss hospice with the patient. Await diagnosis from MD Nieto.
[2017-05-29] MEDS: SODIUM CHLORIDE IV SCH ×9 (21:29)
[2017-05-29] MEDS: SODIUM ACETATE IV SCH ×9 (21:29)
[2017-05-29] MEDS: POTASSIUM CHLORIDE IV SCH ×9 (21:29)
[2017-05-29] MEDS: [UNRECOGNIZED DRUG - OTHER] IV SCH ×9 (21:29)
[2017-05-30] MEDS: MORPHINE 10 MG/ML SYRINGE IV PRN ×5 (00:39→21:31)
[2017-05-30] MEDS: Ondansetron HCl/PF 4 MG/2 ML Vial IVP PRN ×4 (00:40→17:07)
[2017-05-30 05:43] LABS: ALT (SGPT) 9 U/L (8-55); AST (SGOT) 25 U/L (5-34); Albumin 2.5 g/dL (3.4-4.8); Alkaline Phosphatase 295 U/L (40-150); Anion Gap 14 mmol/L (10-20); BUN (Urea Nitrogen) 23 mg/dL (9.8-20.1); Bilirubin, Total 0.5 mg/dL (0.2-1.2); Calc. Creatinine Clearance 55 mL/min (70-130); Calcium 8.3 mg/dL (7.8-10.44); Carbon Dioxide 25 mmol/L (23-31); Chloride 101 mmol/L (98-107); Estimated GFR-MDRD Greater than 90; Globulin 3.4 g/dL (2.4-3.5); Glucose 109 mg/dL (83-110); Magnesium 1.6 mg/dL (1.6-2.6); Phosphorus 3.3 mg/dL (2.3-4.7); Potassium 4.1 mmol/L (3.5-5.1); Protein, Total 5.9 g/dL (6.0-8.3); Sodium 136 mmol/L (136-145)
--- NOTE | 2017-05-30 08:13 | PRG ---
DATE OF SERVICE: 05/29/2017 SUBJECTIVE: The patient is lying in bed, fairly comfortable at rest, but with any movement has sign ificant abdominal pain and is unable to eat without nausea, but has not had any vomiting. She is aw aiting definitive diagnosis from Robert.Susi Nieto prior to decision about hospice. OBJECTIVE: VITAL SIGNS: Shows temperature 98.5, pulse 104, respirations 18, O2 sats 96%, blood pressure 162/75 . LUNGS: Lungs are clear. CARDIAC: Cardiac examination shows regular rhythm. ABDOMEN: Abdomen shows a tender, large abdominal mass. SKIN AND EXTREMITIES: Skin and extremities show stable skin turgor, but cachexia. Most recent weight is 78 pounds. ASSESSMENT: 1. Undifferentiated carcinoma of the abdomen and awaiting pathologic diagnosis before decision abou t treatment. 2. Significant malnutrition and cachexia, stabilizing on TPN with minimal improvement. PLAN: Attempt to obtain a pathologic diagnosis today and help to make decision about definitive car e.
[2017-05-30] MEDS: Enoxaparin Sodium 40 MG/0.4 ML SYRINGE SC SCH (08:52)
[2017-05-30] MEDS: Ferrous Sulfate 325 MG TAB PO SCH (08:52)
[2017-05-30] MEDS: Famotidine/PF 20 mg/2ml Vial SLOW IVP SCH ×2 (08:54→21:21)
[2017-05-30] MEDS: [UNRECOGNIZED DRUG - OTHER] IV SCH ×9 (21:22)
[2017-05-30] MEDS: SODIUM CHLORIDE IV SCH ×9 (21:22)
[2017-05-30] MEDS: SODIUM ACETATE IV SCH ×9 (21:22)
[2017-05-30] MEDS: POTASSIUM CHLORIDE IV SCH ×9 (21:22)
[2017-05-31] MEDS: MORPHINE 10 MG/ML SYRINGE IV PRN ×5 (03:09→21:21)
[2017-05-31] MEDS: Ondansetron HCl/PF 4 MG/2 ML Vial IVP PRN ×4 (07:45→21:21)
[2017-05-31] MEDS: Famotidine/PF 20 mg/2ml Vial SLOW IVP SCH ×2 (07:45→21:31)
--- NOTE | 2017-05-31 07:49 | PRG ---
DATE OF SERVICE: 05/31/2017 SUBJECTIVE: The patient lying is lying in bed, states she did have some pain last night requiring m orphine, but is stable, not able to do any therapy, barely able to go to the bathroom. She is havin g no nausea and vomiting, but not eating well. PHYSICAL EXAMINATION: VITAL SIGNS: Temperature shows 96.3, pulse 107, respirations 20, O2 sats 96%, blood pressure 143/8 3. LABORATORY: Most recent laboratory showed white count of 15,000, hematocrit 24, hemoglobin 7.5. Ac cu-Cheks ranged 115-195, sodium was 136, potassium 4.1, chloride 101, bicarbonate 25, BUN 23, creati nine 0.48, albumin 2.5. ABDOMEN: Abdomen shows large tender abdominal mass. LUNGS: Lungs are clear. CARDIAC: Cardiac examination shows regular rhythm. ASSESSMENT: 1. Undifferentiated carcinoma of the abdomen, awaiting final diagnosis from Dion Nieto. I discu ssed with Dr. Maria, pathologist at [facility] and hopefully will have an answer today for e patient to make decision. 2. Severe malnutrition and cachexia stable, but not improving.
[2017-05-31] MEDS: Enoxaparin Sodium 40 MG/0.4 ML SYRINGE SC SCH (09:09)
[2017-05-31] MEDS: Ferrous Sulfate 325 MG TAB PO SCH (09:09)
[2017-05-31] MEDS: [UNRECOGNIZED DRUG - OTHER] IV SCH ×9 (21:20)
[2017-05-31] MEDS: SODIUM CHLORIDE IV SCH ×9 (21:20)
[2017-05-31] MEDS: SODIUM ACETATE IV SCH ×9 (21:20)
[2017-05-31] MEDS: POTASSIUM CHLORIDE IV SCH ×9 (21:20)
[2017-06-01] MEDS: MORPHINE 10 MG/ML SYRINGE IV PRN ×5 (04:19→20:47)
[2017-06-01] MEDS: Ondansetron HCl/PF 4 MG/2 ML Vial IVP PRN ×4 (04:20→20:48)
[2017-06-01] MEDS: Ferrous Sulfate 325 MG TAB PO SCH (08:27)
[2017-06-01] MEDS: Enoxaparin Sodium 40 MG/0.4 ML SYRINGE SC SCH (08:27)
[2017-06-01] MEDS: Famotidine/PF 20 mg/2ml Vial SLOW IVP SCH ×2 (08:28→20:50)
[2017-06-01] MEDS ORDERED: Famotidine/PF 20 mg/2ml Vial ONE (20:41)
[2017-06-01] MEDS: [UNRECOGNIZED DRUG - OTHER] IV SCH ×9 (21:07)
[2017-06-01] MEDS: SODIUM CHLORIDE IV SCH ×9 (21:07)
[2017-06-01] MEDS: SODIUM ACETATE IV SCH ×9 (21:07)
[2017-06-01] MEDS: POTASSIUM CHLORIDE IV SCH ×9 (21:07)
[2017-06-02] MEDS: MORPHINE 10 MG/ML SYRINGE IV PRN ×6 (00:49→22:44)
[2017-06-02 05:35] LABS: ALT (SGPT) 9 U/L (8-55); AST (SGOT) 31 U/L (5-34); Albumin 2.5 g/dL (3.4-4.8); Alkaline Phosphatase 288 U/L (40-150); Anion Gap 14 mmol/L (10-20); BUN (Urea Nitrogen) 19 mg/dL (9.8-20.1); Bilirubin, Total 0.5 mg/dL (0.2-1.2); Calc. Creatinine Clearance 59 mL/min (70-130); Calcium 8.3 mg/dL (7.8-10.44); Carbon Dioxide 26 mmol/L (23-31); Chloride 100 mmol/L (98-107); Estimated GFR-MDRD Greater than 90; Globulin 3.4 g/dL (2.4-3.5); Glucose 104 mg/dL (83-110); Magnesium 1.8 mg/dL (1.6-2.6); Phosphorus 2.9 mg/dL (2.3-4.7); Potassium 4.2 mmol/L (3.5-5.1); Protein, Total 5.9 g/dL (6.0-8.3); Sodium 136 mmol/L (136-145)
--- NOTE | 2017-06-02 07:22 | PRG ---
DATE OF SERVICE: 06/01/2017 SUBJECTIVE: The patient has no change with moderate abdominal pain controlled with IV morphine. No nausea or vomiting, but greatly decreased appetite. Stable strength is still only barely able to w alk to the bathroom. No cough, shortness of breath, fever or chills. OBJECTIVE: VITAL SIGNS: Blood pressure of 132/96, pulse 110, respirations 18, temperature 95.7. LUNGS: Clear. CARDIAC: Cardiac examination shows regular rhythm. ABDOMEN: Abdomen shows a tender with large abdominal mass. I discussed the case with Samina Quiñonez, Oncology Physician Feed Blender and with pathology report retur ns undifferentiated carcinoma of unknown etiology. After discussion with Ms. Quiñonez feel that most likely transfer to [facility] will not be possible, but will accept to [facility] for chemotherap y and possible surgical therapy and will therefore schedule appointment with Dr. Abernathy in several days. ASSESSMENT: Undifferentiated carcinoma of the abdomen unknown etiology with follow up with Oncology at [facility] as a transfer to [facility] refused at this time and decision about further ther apy to be done at [facility] or hospice. PLAN: 1. Continue TPN. 2. Continue morphine as needed. 3. Discussed with the family the options.
[2017-06-02 08:59] LABS: #Basophils 0.1 thou/uL (0.0-0.2); #Eosinphils 0.1 thou/uL (0.0-0.7); #Lymphocytes 1.3 thou/uL (1.20-3.40); #Monocytes 1.3 thou/uL (0.11-0.59); #Neutrophils 16.8 thou/uL (1.40-6.50); %Basophils 0.6 % (0.0-1.0); %Eosinophils 0.4 % (0.0-10.0); %Lymphocytes 6.6 % (21.0-51.0); %Monocytes 6.5 % (0.0-10.0); %Neutrophils 85.9 % (42.0-75.0); Hemoglobin 7.4 g/dL (12.0-16.0); Mean Corpuscular HGB CONC 31.5 g/dL (32.0-36.0); Mean Corpuscular Hemoglobin 28.2 pg (27.0-31.0); Mean Corpuscular Volume 89.5 fl (81.0-99.0); Mean Platelet Volume 7.2 fL (7.4-10.4); Platelet Count 339 thou/uL (130-400); Red Blood Cell (RBC) Count 2.61 mill/uL (4.20-5.40); White Blood Cell (WBC) Count 19.6 thou/uL (4.8-10.8)
[2017-06-02] MEDS: HYDROcodone/Acetaminophen 5/325 mg Tablet PO PRN (09:14)
[2017-06-02] MEDS: Enoxaparin Sodium 40 MG/0.4 ML SYRINGE SC SCH (09:15)
[2017-06-02] MEDS: Ferrous Sulfate 325 MG TAB PO SCH (09:16)
[2017-06-02] MEDS: Famotidine/PF 20 mg/2ml Vial SLOW IVP SCH ×2 (09:18→21:06)
[2017-06-02] MEDS: Ondansetron HCl/PF 4 MG/2 ML Vial IVP PRN ×2 (09:18→14:21)
--- NOTE | 2017-06-02 11:54 | PRG ---
DATE OF SERVICE: 06/02/2017 SUBJECTIVE: The patient is lying in the bed, rested fairly well last night with IV morphine and Zof ran, still no vomiting, but nausea and poor appetite, oral intake in minimal, soft stool. OBJECTIVE: ABDOMEN: Shows tender, hard, abdominal mass. Bowel sounds are still present. LUNGS: Clear. CARDIAC EXAMINATION: Showed regular rhythm. SKIN AND EXTREMITIES: Show no edema. Decreased skin turgor. VITAL SIGNS: Show blood pressure of 156/79, pulse 110, temperature 98, respirations 20, O2 96%. ASSESSMENT: I discussed conversation with Samina Quiñonez, Oncology Physician Strip Machine Operator and they agree d with follow up plan with Dr. Abernathy next week to determine definitive therapy. PLAN: 1. Arrange transportation and confirm appointment with Dr. Abernathy at 02:30 next Tuesday. 2. Continue morphine. 3. Continue TPN. 3. Repeat CBC and COMP MET, as it has been one week since last lab.
[2017-06-02] MEDS: POTASSIUM CHLORIDE IV SCH ×9 (21:06)
[2017-06-02] MEDS: SODIUM ACETATE IV SCH ×9 (21:06)
[2017-06-02] MEDS: [UNRECOGNIZED DRUG - OTHER] IV SCH ×9 (21:06)
[2017-06-02] MEDS: SODIUM CHLORIDE IV SCH ×9 (21:06)
[2017-06-03] MEDS: MORPHINE 10 MG/ML SYRINGE IV PRN ×5 (02:42→20:30)
[2017-06-03] MEDS: Ferrous Sulfate 325 MG TAB PO SCH (09:18)
[2017-06-03] MEDS: Enoxaparin Sodium 40 MG/0.4 ML SYRINGE SC SCH (09:19)
[2017-06-03] MEDS: Famotidine/PF 20 mg/2ml Vial SLOW IVP SCH ×3 (09:22→20:29)
--- NOTE | 2017-06-03 10:03 | PRG ---
DATE OF SERVICE: 06/03/2017 SUBJECTIVE: The patient feels the same with persistent abdominal pain controlled with morphine, but no increase. She has had no shortness of breath or chest pain, cough, dysuria. OBJECTIVE: VITALSIGNS: However, shows temperature is 97.5, pulse up to 113, respirations 20, O2 sats 96%, bloo d pressure 140/81. LUNGS: Clear. CARDIAC EXAMINATION: Shows regular rhythm. ABDOMEN: Tender with large abdominal mass. There are bowel sounds present. LABORATORY DATA: Laboratory yesterday showed a white count 19,600, hematocrit 23, hemoglobin 7.5. ASSESSMENT: Large abdominal mass secondary to undifferentiated carcinoma with possible early obstru ction. PLAN: 1. Obtain CT of the abdomen and chest today as well as urinalysis to evaluate for source of leukocy tosis. 2. Transferred to [facility] after discussion with Dr. Abernathy for evaluation of treatment of th e abdominal mass or more urgently if signs of obstruction.
--- NOTE | 2017-06-03 12:34 | CT ---
NONCONTRAST ENHANCED CT IMAGES OF THE ABDOMEN AND PELVIS: HISTORY: Abdominal mass. Possible obstruction. TECHNIQUE: Oral and IV contrast were not given, per the order of Dr. Givens. Without oral contrast, it is di fficult to discern the bowel from the mass. It may be worth while to consider repeating the CT of t he abdomen and pelvis after the administration of oral contrast, even if IV contrast cannot be given . FINDINGS: Images demonstrate a right upper extremity PICC line. Coronary artery calcification is seen. The p atient has had ACDF of the lower cervical spine. Calcification of the aorta is seen. Fiber bullous change is seen in the lung parenchyma. The liver and spleen demonstrate no gross evidence of abnormalities, although exam is limited due to the fact that IV contrast was not given. The small bowel loops are moderately dilated and have bee n displaced upwards. This is likely due to the large lower abdominal and pelvic mass. Pockets of g as are seen within a huge lower abdominal and pelvic mass. The three dimensional measurements of th e mass measure approximately 20.4 x 10.9 x 14.4 cm. Pockets of gas are seen, concerning for erosion of the mass into the small bowel, with central areas of mass necrosis. As mentioned above, a repea t exam with oral contrast is recommended, even if IV contrast cannot be given. Some ascites is noted. IMPRESSION: Heterogeneous lower abdominal and pelvic mass. There may be central areas of necrosis. POS: [facility]
[2017-06-03] MEDS: SODIUM CHLORIDE IV SCH ×9 (22:07)
[2017-06-03] MEDS: [UNRECOGNIZED DRUG - OTHER] IV SCH ×9 (22:07)
[2017-06-03] MEDS: POTASSIUM CHLORIDE IV SCH ×9 (22:07)
[2017-06-03] MEDS: SODIUM ACETATE IV SCH ×9 (22:07)
[2017-06-04] MEDS: MORPHINE 10 MG/ML SYRINGE IV PRN ×5 (00:33→18:25)
[2017-06-04 05:14] LABS: Bilirubin Negative (Negative); Blood, Urine Negative (Negative); Clarity Clear (Clear); Glucose, Urine (Dipstick) Negative (Negative); Leukocyte Negative (Negative); Nitrite Negative (Negative); Protein, Urine (Dipstick) Negative (Neg-Trace); Specific Gravity, Urine 1.015 (1.005-1.030)
[2017-06-04] MEDS: Enoxaparin Sodium 40 MG/0.4 ML SYRINGE SC SCH (09:31)
[2017-06-04] MEDS: Ferrous Sulfate 325 MG TAB PO SCH (09:31)
[2017-06-04] MEDS ORDERED: Famotidine/PF 20 mg/2ml Vial ONE (09:35)
[2017-06-04] MEDS: Ondansetron HCl/PF 4 MG/2 ML Vial IVP PRN ×3 (09:47→18:25)
[2017-06-04] MEDS: Famotidine/PF 20 mg/2ml Vial SLOW IVP SCH ×2 (09:47→20:26)
[2017-06-04] MEDS: POTASSIUM CHLORIDE IV SCH ×9 (22:02)
[2017-06-04] MEDS: [UNRECOGNIZED DRUG - OTHER] IV SCH ×9 (22:02)
[2017-06-04] MEDS: SODIUM CHLORIDE IV SCH ×9 (22:02)
[2017-06-04] MEDS: SODIUM ACETATE IV SCH ×9 (22:02)
[2017-06-05] MEDS: MORPHINE 10 MG/ML SYRINGE IV PRN ×6 (00:24→21:20)
[2017-06-05] MEDS: Ondansetron HCl/PF 4 MG/2 ML Vial IVP PRN ×3 (09:02→17:08)
[2017-06-05] MEDS: Ferrous Sulfate 325 MG TAB PO SCH (09:31)
[2017-06-05] MEDS: Enoxaparin Sodium 40 MG/0.4 ML SYRINGE SC SCH (09:31)
[2017-06-05] MEDS ORDERED: Famotidine/PF 20 mg/2ml Vial ONE (09:37)
--- NOTE | 2017-06-05 09:40 | PRG ---
DATE OF SERVICE: 06/04/2017 SUBJECTIVE: The patient feels well, but does have some increased confusion and states that people a re coming into her room at night. She is denying any increased abdominal pain, nausea, vomiting, fe joel, chills or headache. OBJECTIVE: Accu-Cheks are stable at 125-127 on TPN with most recent laboratory shows sodium 136, po tassium 4.2, chloride 100, bicarbonate 26, BUN 19, creatinine 0.45, calcium 8.3, phosphorus 2.9, alk glen phosphatase 288, albumin 2.5. White count 19,600, hematocrit [address], [address] scan was done to evaluate for partial obstruction and showed only a large heterogeneous lower abdominal pelv ic mass with some central areas of necrosis. VITAL SIGNS: Show her to have a temperature 97.5, pulse 113, respirations 20, O2 sats 96%, blood pr essure 140/81. LUNGS: Clear. CARDIAC: Examination shows regular rhythm. ASSESSMENT: Large mass, chronic and possibly eroding into small bowel and possible early sepsis joel casandra obstruction. PLAN: Continue pain relief. Discuss with Surgery and Oncology in 2 days. Discuss severity of the situation with family.
[2017-06-05] MEDS: Famotidine/PF 20 mg/2ml Vial SLOW IVP SCH ×2 (09:41→21:20)
--- NOTE | 2017-06-05 10:24 | PRG ---
DATE OF SERVICE: 06/05/2017 SUBJECTIVE: The patient is lying in bed, in increasing pain, discussing with her possible o ptions for hospice, having no nausea or vomiting, but is becoming weaker. OBJECTIVE: VITAL SIGNS: Shows her temperature is 98, pulse 110, respirations 20, O2 sats 94%, blood pressure 1 40/72. ABDOMEN: Shows large abdominal mass, increasingly tender, with increased bowel sounds. LABORATORY DATA: CT scan yesterday showed possible mass eroding into the small bowel. Accu-Cheks r dioni 107 to 114. ASSESSMENT: Abdominal mass of unknown etiology with probable erosion into small bowel, significantl y weakening and deconditioning. PLAN: 1. Family discussion with patient and hospice and palliative care. 2. The patient refused oncology appointment. We will discontinue. 3. Continue pain relief morphine routinely. 4. Consider discontinuation of TPN.
[2017-06-05] MEDS: POTASSIUM CHLORIDE IV SCH ×9 (22:01)
[2017-06-05] MEDS: SODIUM CHLORIDE IV SCH ×9 (22:01)
[2017-06-05] MEDS: [UNRECOGNIZED DRUG - OTHER] IV SCH ×9 (22:01)
[2017-06-05] MEDS: SODIUM ACETATE IV SCH ×9 (22:01)
[2017-06-06] MEDS: MORPHINE 10 MG/ML SYRINGE IV PRN ×5 (02:41→20:08)
[2017-06-06 05:32] LABS: ALT (SGPT) 8 U/L (8-55); AST (SGOT) 36 U/L (5-34); Albumin 2.5 g/dL (3.4-4.8); Alkaline Phosphatase 327 U/L (40-150); Anion Gap 17 mmol/L (10-20); BUN (Urea Nitrogen) 19 mg/dL (9.8-20.1); Bilirubin, Total 0.5 mg/dL (0.2-1.2); Calc. Creatinine Clearance 59 mL/min (70-130); Calcium 8.3 mg/dL (7.8-10.44); Carbon Dioxide 26 mmol/L (23-31); Chloride 99 mmol/L (98-107); Estimated GFR-MDRD Greater than 90; Globulin 3.5 g/dL (2.4-3.5); Glucose 96 mg/dL (83-110); Magnesium 1.7 mg/dL (1.6-2.6); Potassium 3.8 mmol/L (3.5-5.1); Sodium 138 mmol/L (136-145)
[2017-06-06] MEDS: Famotidine/PF 20 mg/2ml Vial SLOW IVP SCH ×2 (08:10→20:07)
[2017-06-06] MEDS: Ferrous Sulfate 325 MG TAB PO SCH (08:10)
[2017-06-06] MEDS: Enoxaparin Sodium 40 MG/0.4 ML SYRINGE SC SCH (08:10)
[2017-06-06] MEDS ORDERED: Sodium Chloride 0.9% 10 ML ONE (11:55)
--- NOTE | 2017-06-06 17:43 | PRG ---
DATE OF SERVICE: 06/06/2017 SUBJECTIVE: The patient lying in bed, visiting with daughters and about her condition and jonathan gaona to discuss code status and hospice status. After discussion, patient does wish to remain on T PN until she has her affairs in order and continue on morphine for pain control, but will request a do not resuscitate status and will not be evaluated for surgery. She is having increasing pain, but no nausea or vomiting. OBJECTIVE: VITAL SIGNS: Temperature 97.5, pulse 111, respirations 20, O2 sats 98%. ABDOMEN: Soft, but with a large tender abdominal mass, high pitched bowel sounds. LUNGS: Clear. CARDIAC: Examination shows regular rhythm. LABORATORY DATA: Accu-Cheks still stable at 103-120. Sodium 138, potassium 3.8, chloride 99, bicar bonate 26, BUN 19, creatinine 0.45, alkaline phosphatase 327, AST 36, albumin 2.5. ASSESSMENT: Large abdominal carcinoma of unknown etiology with probable encroachment and invasion o f small bowel, increasing abdominal pain. PLAN: 1. Continue TPN to continue strength until patient can get affairs in order. 2. Make [id number]. 3. Increase morphine to 7.5 mg q.3 h. p.r.n. pain. 4. Consult hospice possibly in the future.
[2017-06-06] MEDS: [UNRECOGNIZED DRUG - OTHER] IV SCH ×9 (22:11)
[2017-06-06] MEDS: POTASSIUM CHLORIDE IV SCH ×9 (22:11)
[2017-06-06] MEDS: SODIUM ACETATE IV SCH ×9 (22:11)
[2017-06-06] MEDS: SODIUM CHLORIDE IV SCH ×9 (22:11)
[2017-06-07] MEDS: MORPHINE 10 MG/ML SYRINGE IV PRN ×7 (01:07→23:54)
[2017-06-07] MEDS: Ondansetron HCl/PF 4 MG/2 ML Vial IVP PRN (05:44)
[2017-06-07] MEDS ORDERED: Sodium Chloride 0.9% 10 ML ONE (08:26)
[2017-06-07] MEDS: Famotidine/PF 20 mg/2ml Vial SLOW IVP SCH ×2 (08:46→20:13)
[2017-06-07] MEDS: Ferrous Sulfate 325 MG TAB PO SCH (08:47)
[2017-06-07] MEDS: Enoxaparin Sodium 40 MG/0.4 ML SYRINGE SC SCH (08:47)
[2017-06-07] MEDS ORDERED: Morphine 10 MG/0.5 ML ORAL SYRINGE ONE ×4 (13:21→13:28)
[2017-06-07] MEDS: POTASSIUM CHLORIDE IV SCH ×9 (22:00)
[2017-06-07] MEDS: SODIUM CHLORIDE IV SCH ×9 (22:00)
[2017-06-07] MEDS: [UNRECOGNIZED DRUG - OTHER] IV SCH ×9 (22:00)
[2017-06-07] MEDS: SODIUM ACETATE IV SCH ×9 (22:00)
[2017-06-08] MEDS: MORPHINE 10 MG/ML SYRINGE IV PRN ×6 (04:32→21:35)
--- NOTE | 2017-06-08 06:26 | PRG ---
DATE OF SERVICE: 06/07/2017 SUBJECTIVE: The patient is having increased abdominal pain and increased vomiting with any drinking of a small amount of liquids and is concerned that may be beginning to obstruct. OBJECTIVE: VITAL SIGNS: Shows blood pressure is still stable at 157/81, temperature 96, pulse up to 109, respi rations 20, O2 saturation is 95%. LUNGS: Lungs are clear. CARDIAC: Cardiac examination shows regular rhythm. ABDOMEN: Soft, nontender. GENERAL: The patient is awake and alert, confused, but in significant distress from her abdominal p ain and nausea. ASSESSMENT: Recurrent and increasing abdominal pain and nausea secondary to abdominal mass with pro bably impending obstruction or perforation. PLAN: Increase morphine to 10 mg every 3 hours. Discuss urgency of situation with family and the n eed to get affairs in order as patient is eminent expiration.
[2017-06-08] MEDS: Ferrous Sulfate 325 MG TAB PO SCH (08:33)
[2017-06-08] MEDS: Ondansetron HCl/PF 4 MG/2 ML Vial IVP PRN ×5 (08:34→21:35)
[2017-06-08] MEDS: Enoxaparin Sodium 40 MG/0.4 ML SYRINGE SC SCH (08:34)
[2017-06-08] MEDS: Famotidine/PF 20 mg/2ml Vial SLOW IVP SCH ×2 (09:20→21:35)
[2017-06-08 20:30] VITALS: BP 166/77; TEMP 99.2
[2017-06-08] MEDS: SODIUM ACETATE IV SCH ×9 (21:35)
[2017-06-08] MEDS: [UNRECOGNIZED DRUG - OTHER] IV SCH ×9 (21:35)
[2017-06-08] MEDS: POTASSIUM CHLORIDE IV SCH ×9 (21:35)
[2017-06-08] MEDS: SODIUM CHLORIDE IV SCH ×9 (21:35)
[2017-06-09] MEDS: Ondansetron HCl/PF 4 MG/2 ML Vial IVP PRN ×6 (00:57→17:19)
[2017-06-09] MEDS: MORPHINE 10 MG/ML SYRINGE IV PRN ×4 (00:57→11:13)
[2017-06-09 06:04] LABS: ALT (SGPT) 10 U/L (8-55); AST (SGOT) 40 U/L (5-34); Albumin 2.4 g/dL (3.4-4.8); Alkaline Phosphatase 356 U/L (40-150); Anion Gap 15 mmol/L (10-20); BUN (Urea Nitrogen) 21 mg/dL (9.8-20.1); Bilirubin, Total 0.7 mg/dL (0.2-1.2); Calc. Creatinine Clearance 56 mL/min (70-130); Calcium 8.5 mg/dL (7.8-10.44); Carbon Dioxide 27 mmol/L (23-31); Chloride 102 mmol/L (98-107); Estimated GFR-MDRD Greater than 90; Globulin 3.7 g/dL (2.4-3.5); Glucose 115 mg/dL (83-110); Magnesium 1.9 mg/dL (1.6-2.6); Phosphorus 3.8 mg/dL (2.3-4.7); Potassium 4.2 mmol/L (3.5-5.1); Protein, Total 6.1 g/dL (6.0-8.3); Sodium 140 mmol/L (136-145)
[2017-06-09] MEDS ORDERED: Lorazepam 2 MG/ML VIAL SLOW IVP PRN (07:29)
--- NOTE | 2017-06-09 08:43 | PRG ---
DATE OF SERVICE: 06/08/2017 SUBJECTIVE: The patient states she is having increasing pain, but did have a fitful sleep through t he night, in fact is asleep now when I walked into the room, but has not had anything by mouth. Dis cussed with family and they have gotten her affairs in order and will meet with me tomorrow about pa lliative or hospice care. OBJECTIVE: VITAL SIGNS: Blood pressure is 137/71, pulse 119, respirations 18, O2 sats 95%, temperature 96/30. LUNGS: Lungs are clear. CARDIAC: Cardiac examination shows regular rhythm. ABDOMEN: Abdomen is soft, but significantly tender with a large tender abdominal mass. There are s till bowel sounds. ASSESSMENT: 1. Large abdominal carcinoma of unknown etiology with possibly impending obstruction or perforation into the small bowel. 2. Severe cachexia. PLAN: Continue morphine. Discuss palliative care with family again tomorrow as the patient appears to have had her affairs in order.
--- NOTE | 2017-06-09 08:47 | PRG ---
DATE OF SERVICE: 06/09/2017 SUBJECTIVE: The patient feels somewhat groggy today and altering, had a fitful sleep last night on morphine. The family is room and all agree that time for palliative care. The patient wishes to discuss with her sons today and possibly her sister and to have IV morphine given to help with her rest and then to start weaning off of TPN, possibly tomorrow. OBJECTIVE: VITAL SIGNS: Shows her blood pressure is 166/77, O2 sats 92%, respirations 20, pulse is 118, temper ature 99.2. LUNGS: Clear. CARDIAC: Cardiac examination shows regular rhythm. ABDOMEN: Abdomen shows a large tender abdominal mass. High-pitched bowel sounds. SKIN AND EXTREMITIES: Skin and extremities show decreased skin turgor. NEUROLOGIC: The patient is somewhat rambling, confused at first, but then reorients, becomes lucid and states this is what she wished to do. The family agrees. ASSESSMENT: Large abdominal carcinoma with impending obstruction, perforation. PLAN: IV Ativan 0.5 mg q.4h. as needed today, begin weaning TPN tonight or tomorrow and began palli ative or hospice care tomorrow.
[2017-06-09] MEDS: Morphine 10 MG/ML VIAL SLOW IVP PRN ×2 (14:14→17:20)
[2017-06-09] MEDS: POTASSIUM CHLORIDE IV SCH ×9 (21:23)
[2017-06-09] MEDS: SODIUM ACETATE IV SCH ×9 (21:23)
[2017-06-09] MEDS: [UNRECOGNIZED DRUG - OTHER] IV SCH ×9 (21:23)
[2017-06-09] MEDS: SODIUM CHLORIDE IV SCH ×9 (21:23)
[2017-06-10] MEDS ORDERED: Morphine 2 MG/ML SYRINGE ONE ×2 (03:30→07:34)
[2017-06-10] MEDS: MORPHINE 10 MG/ML SYRINGE IM PRN ×2 (03:41→07:40)
[2017-06-10] MEDS ORDERED: Morphine 10 MG/0.5 ML ORAL SYRINGE SL PRN (09:24)
--- NOTE | 2017-06-10 09:51 | PRG ---
DATE OF SERVICE: 06/10/2017 SUBJECTIVE: The patient is confused and agitated, pulled out IV last night, was in pain requiring I M morphine. OBJECTIVE: GENERAL: The patient is awake and alert, at this time is having some problem with confusion, mainly at night. VITAL SIGNS: Temperature was 99.2, pulse 118, respirations 20, blood pressure 166/77. LUNGS: Clear. CARDIAC EXAMINATION: Shows regular rhythm. ABDOMEN: Shows a tender, large abdominal mass. ASSESSMENT: Large abdominal carcinoma with impending obstruction, perforation. PLAN: After discussion with family and the patient, we will consult [facility], start on Ro xanol sublingual as patient has removed IV and Zofran ODT and possibly topical Haldol.
== END 2017-06-10 14:24 | disposition hospice, inpatient (51) | DRG 374 ==
LOC: NAV ACUTE 16:02
PROVIDERS: ADMIT Internal Medicine; ATTEND Internal Medicine
PROC: 3E0436Z Introduction of Nutritional Substance into Central Vein, Percutaneous Approach (ICD-10-PCS; principal; 2017-05-18)
DX: C76.2 Malignant neoplasm of abdomen (principal); K63.1 Perforation of intestine (nontraumatic); E43 Unspecified severe protein-calorie malnutrition; K56.609 Unspecified intestinal obstruction, unspecified as to partial versus complete obstruction; D64.9 Anemia, unspecified; R64 Cachexia; Z68.1 Body mass index [BMI] 19.9 or less, adult; Z66 Do not resuscitate; I10 Essential (primary) hypertension; E78.5 Hyperlipidemia, unspecified; Z51.5 Encounter for palliative care; R53.1 Weakness
CPT/HCPCS: 36415; 36416; 71250; 74177; 80053; 80061; 81003; 83735; 84100; 84134; 85025; 85610; 85730; A4216; C1751; J1650; J2060; J2270; J2405; J3475; J3480; Q0162; S0028

== ENCOUNTER 2017-06-10 14:29 | Inpatient (IN) | payer OTHER, BC ==
[2017-06-10] MEDS ORDERED: Haloperidol Lactate 5 MG/ML VIAL SLOW IVP PRN (14:48)
[2017-06-10] MEDS ORDERED: Morphine 10 MG/0.5 ML ORAL SYRINGE SL PRN (14:49)
[2017-06-10] MEDS: Morphine 10 MG/ML VIAL SLOW IVP SCH ×5 (14:56→23:13)
[2017-06-10] MEDS: Ondansetron HCl/PF 4 MG/2 ML Vial SLOW IVP PRN ×3 (14:59→21:46)
[2017-06-10 16:18] VITALS: TEMP 99.4
[2017-06-10 16:19] VITALS: BMI 16.2
[2017-06-10] MEDS ORDERED: Promethazine HCl 25 MG/ML VIAL SLOW IVP PRN (17:43)
[2017-06-10] MEDS ORDERED: Acetaminophen 650 MG Suppository PR PRN ×2 (18:42→19:31)
[2017-06-10] MEDS ORDERED: Hyoscyamine Sulfate SL 0.125 mg Tablet SL PRN (18:43)
[2017-06-10] MEDS ORDERED: CHLORPROMAZINE 100 MG PR PRN (19:32)
[2017-06-10] MEDS: Haloperidol Lactate 5 MG/ML VIAL SLOW IVP PRN (23:13)
[2017-06-11] MEDS: Morphine 10 MG/ML VIAL SLOW IVP SCH ×7 (03:25→20:35)
[2017-06-11] MEDS: Haloperidol Lactate 5 MG/ML VIAL SLOW IVP PRN ×2 (08:20→14:40)
[2017-06-11] MEDS ORDERED: Sodium Chloride 0.9% 10 ML ONE (11:47)
--- NOTE | 2017-06-11 14:59 | PRG ---
MEDICAL PROGRESS NOTE DATE OF SERVICE: 06/11/2017 SUBJECTIVE: The patient is now on hospice and is receiving IV Haldol and morphine and appears to be en comfortable, although she became agitated last night when visited by another nurse, has not requi red Thorazine suppositories and has not responded to Roxanol solution and Zofran ODT, so was receivi ng morphine and Phenergan IV. OBJECTIVE: VITAL SIGNS: Temperature is 98.4, pulse 120, respirations 16 and O2 saturation is 95%. LUNGS: Clear. CARDIAC: Shows rapid regular rhythm. ABDOMEN: Soft with abdominal mass, it is tender. SKIN AND EXTREMITIES: Shows scaphoid, no ulcers and decreased skin turgor. ASSESSMENT AND PLAN: 1. Large abdominal carcinoma with impending perforation obstruction on hospice with IV morphine and Phenergan required for pain and nausea relief. 2. Agitation controlled with IV Haldol and/or Thorazine suppositories. Prognosis is terminal. PLAN: Continue hospice, pain and nausea symptom relief, family to stay in the room with the patient .
[2017-06-12] MEDS: Morphine 10 MG/ML VIAL SLOW IVP SCH ×8 (00:46→21:17)
[2017-06-12] MEDS: Haloperidol Lactate 5 MG/ML VIAL SLOW IVP PRN (04:35)
--- NOTE | 2017-06-12 12:40 | PRG ---
DATE OF SERVICE: 06/12/2017 SUBJECTIVE: The patient is obtunded and nonresponsive. She has been receiving Haldol and morphine routinely, has not been complaining of pain, became somewhat agitated with her bath. OBJECTIVE: VITAL SIGNS: Shows her temperature is 99, pulse is 120, and respirations 16. LUNGS: Clear. CARDIAC: Shows regular rhythm. ABDOMEN: Soft. ASSESSMENT: Invasive carcinoma of the abdomen of unknown etiology with impending obstruction, perfo ration on hospice care for intractable pain and nausea, appears to be tolerating IV morphine and Fracisco dol and Phenergan well, but appears to be actively deteriorating and family understands, this is natanael ng followed by [facility].
[2017-06-13] MEDS: Morphine 10 MG/ML VIAL SLOW IVP SCH ×5 (01:25→11:56)
--- NOTE | 2017-06-13 08:24 | PRG ---
DATE OF SERVICE: 06/13/2017 SUBJECTIVE: The patient is unresponsive with shallow slow respirations. OBJECTIVE: VITAL SIGNS: Temperature is 99, pulse is 120, respirations 16. LUNGS: Lungs show a few upper airway sounds. CARDIAC: Cardiac examination shows rapid regular rhythm. 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 PLAN: Discuss impending expiration and inform the family and arrange for autopsy at their request.
--- NOTE | 2017-06-14 06:22 | DS ---
DATE OF ADMISSION: 05/18/2017 DATE OF EXPIRATION: 06/13/2017 FINAL DIAGNOSIS: Abdominal carcinoma of unknown etiology with obstruction and possible perforation. HOSPITAL COURSE: The patient is a very pleasant 76-year-old white female with a long history of hyp ertension, hyperlipidemia, who was found to have a large abdominal mass after having abdominal pain and weight loss over the last several months. This was being evaluated for surgical or chemotherapy when it was found that the mass was entwined in her intestine and could not be surgically removed. Biopsy returned undifferentiated abdominal carcinoma and chemotherapy protocol could not be obtaine d; therefore, the patient began having increasing pain. CT scan showed impending perforation, and t herefore, the patient and the patient's family were informed of this and she elected to go on hospic e. She was placed on hospice, was kept comfortable with morphine, Zofran, gradually became more and more obtunded, unresponsive and then on 06/13/2017. She will have an autopsy at her reques t.
== END 2017-06-13 14:30 | disposition expired | DRG 951 ==
LOC: NAV ACUTE 14:29
PROVIDERS: ADMIT Internal Medicine; ATTEND Internal Medicine
DX: Z51.5 Encounter for palliative care (principal); K63.1 Perforation of intestine (nontraumatic); L89.214 Pressure ulcer of right hip, stage 4; K56.609 Unspecified intestinal obstruction, unspecified as to partial versus complete obstruction; K55.9 Vascular disorder of intestine, unspecified; I42.9 Cardiomyopathy, unspecified; K92.2 Gastrointestinal hemorrhage, unspecified; M86.9 Osteomyelitis, unspecified; Z68.1 Body mass index [BMI] 19.9 or less, adult; E66.01 Morbid (severe) obesity due to excess calories; C76.2 Malignant neoplasm of abdomen; I10 Essential (primary) hypertension; E78.5 Hyperlipidemia, unspecified; E11.9 Type 2 diabetes mellitus without complications; I48.2 Chronic atrial fibrillation; Z79.01 Long term (current) use of anticoagulants; Z95.0 Presence of cardiac pacemaker; Z96.643 Presence of artificial hip joint, bilateral; Z74.01 Bed confinement status
CPT/HCPCS: A4216; J1630; J2270; J2405